=== PATIENT | female | born 1955 | race Caucasian/White ===

== ENCOUNTER 2018-11-20 08:20 | Emergency (ER) | payer BC ==
--- NOTE | 2018-11-20 08:54 | EDM.PDOC ---
ED HPI GENERAL MEDICAL PROBLEM - General Chief Complaint: General Stated Complaint: Dizziness, Nausea Time Seen by Provider: 11/20/18 08:40 Source of Information: Reports: Patient History Limitations: Reports: No Limitations - History of Present Illness INITIAL COMMENTS - FREE TEXT/NARRATIVE: Patient is a 63-year-old female seen in the ER with chief complaint of nausea vomiting right ear pain and possible hives in that she secondary possibly to antibiotics patient started on antibiotics a couple days ago then quit secondary to nausea and vomiting now presents with the above symptoms to the ER Onset: Gradual Duration: Day(s):, Getting Worse Location: Reports: Head, Abdomen Quality: Reports: Pressure Severity: Moderate Improves with: Reports: Medication Worsens with: Reports: None Associated Symptoms: Reports: No Other Symptoms - Related Data Allergies Allergy/AdvReac Type Severity Reaction Status Date / Time No Known Allergies Allergy Verified 11/20/18 08:44 Home Meds: Home Meds RX: Cholecalciferol (Vitamin D3) [Vitamin D3] 2,000 unit PO DAILY 12/01/13 [ History] RX: Magnesium Oxide 400 mg PO DAILY 12/01/13 [History] RX: Buckley-3S/DHA/Epa/Fish Oil [Fish Oil Dr 1,000 mg Softgel] 2 each PO DAILY [History] Cefprozil [Cefzil] 500 mg PO BID #20 tab 11/20/18 [Rx] Ondansetron [Zofran ODT] 4 mg PO Q6H PRN #20 tab.dis 11/20/18 [Rx] RX: ALPRAZolam [Alprazolam] 0.5 mg PO Q8HR 11/20/18 [History] RX: Non-Formulary Medication [NF Drug] 1 applic TOP ASDIRECTED 11/20/18 [History ] diphenhydrAMINE [Benadryl] 25 mg PO Q6H PRN #1 bottle 11/20/18 [Rx] Past Medical History Cardiovascular History: Reports: Heart Murmur, High Cholesterol Respiratory History: Reports: None Gastrointestinal History: Reports: None [employer] History: Reports: Other (See Below) Other [employer] History: Miscarriage x 1 Other Dermatologic History: hx. porocaratosis - Past Surgical History HEENT Surgical History: Reports: Tonsillectomy Female Surgical History: Reports: D&C, Tubal Ligation Musculoskeletal Surgical History: Reports: Carpal Tunnel ED ROS GENERAL - Review of Systems Review Of Systems: See Below HEENT: Reports: Ear Pain Respiratory: Reports: No Symptoms Cardiovascular: Reports: No Symptoms Endocrine: Reports: No Symptoms GI/Abdominal: Reports: No Symptoms : Reports: No Symptoms Musculoskeletal: Reports: No Symptoms Skin: Reports: Rash Neurological: Reports: No Symptoms Psychiatric: Reports: No Symptoms Hematologic/Lymphatic: Reports: No Symptoms Immunologic: Reports: No Symptoms ED EXAM, GENERAL - Physical Exam Exam: See Below Exam Limited By: No Limitations General Appearance: Alert, WD/WN, No Apparent Distress Eye Exam: Bilateral Eye: EOMI, PERRL Ears: Normal External Exam, Normal Canal Ear Exam: Right Ear: TM normal (Red with some bulging), TM Red, TM Bulging Nose: Normal Inspection, Normal Mucosa, No Blood Throat/Mouth: Normal Inspection, Normal Lips, Normal Teeth, Normal Gums, Normal Oropharynx (Dry), Normal Voice, No Airway Compromise Head: Atraumatic, Normocephalic Neck: Normal Inspection, Supple, Non-Tender, Full Range of Motion Respiratory/Chest: No Respiratory Distress, Lungs Clear, Normal Breath Sounds, No Accessory Muscle Use, Chest Non-Tender Cardiovascular: Normal Peripheral Pulses, Regular Rate, Rhythm, No Edema, No Gallop, No JVD, No Murmur, No Rub GI/Abdominal: Normal Bowel Sounds, Soft, Non-Tender, No Organomegaly, No Distention, No Abnormal Bruit, No Mass (Female) Exam: Deferred Rectal (Female) Exam: Deferred Back Exam: Normal Inspection, Full Range of Motion, NT Extremities: Normal Inspection, Normal Range of Motion, Non-Tender, Normal Capillary Refill, No Pedal Edema Neurological: Alert, Oriented, CN II-XII Intact, Normal Cognition, Normal Gait, Normal Reflexes, No Motor/Sensory Deficits Psychiatric: Normal Affect, Normal Mood Skin Exam: Warm, Dry, Intact, Normal Color, No Rash Course - Vital Signs Last Recorded V/S: Last Vital Signs Temp 97.6 F 11/20/18 08:21 Pulse 79 11/20/18 08:32 Resp 12 11/20/18 08:32 BP 177/91 H 11/20/18 08:32 Pulse Ox 99 11/20/18 08:32 - Orders/Labs/Meds Orders: Active Orders 24 hr Category Date Time Status Sodium Chloride 0.9% [Normal Saline] 1,000 ml Med 11/20/18 10:22 Active IV ASDIRECTED Sodium Chloride 0.9% [Saline Flush] Med 11/20/18 09:10 Active 10 ml FLUSH ASDIRECTED PRN Saline Lock Insert [OM.PC] Stat Oth 11/20/18 09:10 Ordered Medication Orders Sodium Chloride (Normal Saline) 1,000 mls @ 500 mls/hr IV ASDIRECTED MARY Sodium Chloride (Saline Flush) 10 ml FLUSH ASDIRECTED PRN PRN Reason: Keep Vein Open Last Admin: 11/20/18 09:16 Dose: 10 ml Meds: Medications Generic Name Dose Route Start Last Admin Trade Name Freq PRN Reason Stop Dose Admin Sodium Chloride 1,000 mls @ 500 mls/hr 11/20/18 10:22 Normal Saline IV ASDIRECTED MARY Sodium Chloride 10 ml 11/20/18 09:10 11/20/18 09:16 Saline Flush FLUSH 10 ml ASDIRECTED PRN Administration Keep Vein Open Discontinued Medications Generic Name Dose Route Start Last Admin Trade Name Freq PRN Reason Stop Dose Admin Diphenhydramine HCl 50 mg 11/20/18 09:08 11/20/18 09:15 Benadryl IVPUSH 11/20/18 09:09 50 mg ONETIME ONE Administration Sodium Chloride 1,000 mls @ 500 mls/hr 11/20/18 09:15 11/20/18 09:15 Normal Saline IV 500 mls/hr ASDIRECTED MARY Administration Ondansetron HCl 4 mg 11/20/18 09:08 11/20/18 09:15 Zofran IVPUSH 11/20/18 09:09 4 mg ONETIME ONE Administration Departure - Departure Time of Disposition: 10:45 Disposition: Home, Self-Care 01 Clinical Impression: Allergic reaction caused by a drug Qualifiers: Encounter type: initial encounter Qualified Code(s): T78.40XA - Allergy, unspecified, initial encounter - Discharge Information *PRESCRIPTION DRUG MONITORING PROGRAM REVIEWED*: Not Applicable *COPY OF PRESCRIPTION DRUG MONITORING REPORT IN PATIENT AKIRA: Not Applicable Prescriptions: Cefprozil [Cefzil] 500 mg PO BID #20 tab diphenhydrAMINE [Benadryl] 25 mg PO Q6H PRN #1 bottle PRN Reason: Itching Ondansetron [Zofran ODT] 4 mg PO Q6H PRN #20 tab.dis PRN Reason: nausea/ vomitting Instructions: Diphenhydramine injection, Ondansetron injection, Drug Allergy, [id number] Referrals: Leandra Gibson [employer] [Primary Care Provider] - Forms: ED Department Discharge Care Plan Goals: patient released to home. Patient to take Cefzil 500mg BID for 10 days, Zofran ADO 4mg for nausea and vomitting every 6 hours as needed, Benadryl 25mg every 6 hours as needed if itching occurs. - My Orders Last 24 Hours: My Active Orders 11/20/18 09:10 Sodium Chloride 0.9% [Saline Flush] 10 ml FLUSH ASDIRECTED PRN Saline Lock Insert [OM.PC] Stat 11/20/18 10:22 Sodium Chloride 0.9% [Normal Saline] 1,000 ml IV ASDIRECTED - Assessment/Plan Last 24 Hours: My Active Orders 11/20/18 09:10 Sodium Chloride 0.9% [Saline Flush] 10 ml FLUSH ASDIRECTED PRN Saline Lock Insert [OM.PC] Stat 11/20/18 10:22 Sodium Chloride 0.9% [Normal Saline] 1,000 ml IV ASDIRECTED
[2018-11-20] MEDS ORDERED: diphenhydrAMINE 50 MG/ML SDV IVPUSH ONE (09:08)
[2018-11-20] MEDS ORDERED: Ondansetron 4 MG/2 ML SDV IVPUSH ONE (09:08)
[2018-11-20] MEDS ORDERED: Sodium Chloride 0.9% 10 ML Syringe FLUSH PRN (09:10)
[2018-11-20] MEDS ORDERED: Sodium Chloride 0.9% 1,000 ML IV SCH ×2 (09:15→10:22)
[2018-11-20 10:49] VITALS: BP 162/86
== END 2018-11-20 10:55 | disposition home or self-care (01) ==
LOC: LL.ED 08:20
DX: R11.2 Nausea with vomiting, unspecified (principal); T50.905A Adverse effect of unspecified drugs, medicaments and biological substances, initial encounter; E78.00 Pure hypercholesterolemia, unspecified; Z79.899 Other long term (current) drug therapy
CPT/HCPCS: 96361; 96374; 96375; 99283; J1200; J2405; J7030

== ENCOUNTER 2018-11-21 08:27 | Observation (INO) | payer BC ==
[2018-11-21 08:58] LABS: CHLORIDE,CL 102 mmol/L (98-107); SODIUM,NA 141 mmol/L (136-145)
--- NOTE | 2018-11-21 09:28 | EDM.PDOC ---
ED HPI GENERAL MEDICAL PROBLEM - General Chief Complaint: General Stated Complaint: dizziness, nausea, vomiting Time Seen by Provider: 11/21/18 08:38 Source of Information: Reports: Patient History Limitations: Reports: No Limitations - History of Present Illness INITIAL COMMENTS - FREE TEXT/NARRATIVE: 5 day history of nausea/emesis/vertigo. Attributed to right middle ear infection, likely viral in etiology. Was given coverage initially with Augmentin for any potential bacterial involvement. Developed facial urticaria and switched to Cefzil. Has been tolerating the Cefzil. Seen at clinic yesterday. Continues to have 4-5 episodes of emesis daily despite PRN Zofran. No fevers. Had a sore throat initially before developing ear pain on right side. Sore throat has resolved. Dizziness worse with head rotation/walking. No bowel changes. No cough/wheeze/ SOB/respiratory changes. No rashes currently. Urinating well. No UTI complaints. No vision changes but describes spinning sensation with head rotation. No hearing changes. No pain complaints other than intermittent discomfort in right ear. No other complaints during ROS in ER. - Related Data Allergies Allergy/AdvReac Type Severity Reaction Status Date / Time amoxicillin [From Augmentin] Allergy Hives Verified 11/21/18 09:47 clavulanic acid Allergy Hives Verified 11/21/18 09:47 [From Augmentin] Home Meds: Home Meds Cholecalciferol (Vitamin D3) [Vitamin D3] 2,000 unit PO DAILY 12/01/13 [History] Magnesium Oxide 400 mg PO DAILY 12/01/13 [History] Edward-3S/DHA/Epa/Fish Oil [Fish Oil Dr 1,000 mg Softgel] 2 each PO DAILY [History] ALPRAZolam [Alprazolam] 0.5 mg PO Q8HR 11/20/18 [History] Cefprozil [Cefzil] 500 mg PO BID #20 tab 11/20/18 [Rx] Non-Formulary Medication [NF Drug] 1 applic TOP ASDIRECTED 11/20/18 [History] Ondansetron [Zofran ODT] 4 mg PO Q6H PRN #20 tab.dis 11/20/18 [Rx] diphenhydrAMINE [Benadryl] 25 mg PO Q6H PRN #1 bottle 11/20/18 [Rx] Past Medical History Cardiovascular History: Reports: Heart Murmur, High Cholesterol Respiratory History: Reports: None Gastrointestinal History: Reports: None [employer]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 porocaratosis - Past Surgical History HEENT Surgical History: Reports: Tonsillectomy Female Surgical History: Reports: D&C, Tubal Ligation Musculoskeletal Surgical History: Reports: Carpal Tunnel Social & Family History - Family History Family Medical History: Noncontributory - Tobacco Use Smoking Status *Q: Never Smoker - Caffeine Use Caffeine Use: Reports: None - Alcohol Use Alcohol Use History: No - Recreational Drug Use Recreational Drug Use: No Drug Use in Last 12 Months: No ED ROS GENERAL - Review of Systems Review Of Systems: ROS reveals no pertinent complaints other than HPI. ED EXAM, GENERAL - Physical Exam Exam: See Below Exam Limited By: No Limitations General Appearance: Alert, WD/WN, No Apparent Distress Eye Exam: Bilateral Eye: EOMI, PERRL, Other (no nystagmus noted) Ears: Normal External Exam, Normal Canal, Other (right TM slightly retracted. No erythema, no fluid noted) Ear Exam: Bilateral Ear: Auricle Normal Nose: No: Nasal Deformity, Nasal Swelling, Nasal Drainage Throat/Mouth: Normal Oropharynx, Normal Voice, No Airway Compromise Head: Atraumatic, Normocephalic Neck: Normal Inspection, Supple, Non-Tender, Full Range of Motion. No: Lymphadenopathy (L), Lymphadenopathy (R) Respiratory/Chest: No Respiratory Distress, Lungs Clear, Normal Breath Sounds, No Accessory Muscle Use, Chest Non-Tender Cardiovascular: Regular Rate, Rhythm, No Edema, No JVD Peripheral Pulses: 2+: Radial (L), Radial (R), Dorsalis Pedis (L), Dorsalis Pedis (R) GI/Abdominal: Normal Bowel Sounds, Soft, Non-Tender, No Distention (Female) Exam: Deferred Rectal (Female) Exam: Deferred Back Exam: Normal Inspection Extremities: Normal Range of Motion, Non-Tender, No Pedal Edema Neurological: Alert, Oriented, CN II-XII Intact, Normal Cognition, No Motor/ Sensory Deficits Psychiatric: Normal Affect, Normal Mood Skin Exam: Warm, Dry, Intact, Normal Color Course - Vital Signs Last Recorded V/S: Last Vital Signs Temp 37.2 C 11/21/18 12:00 Pulse 74 11/21/18 12:00 Resp 15 11/21/18 12:00 BP 181/92 H 11/21/18 12:00 Pulse Ox 100 11/21/18 12:00 - Orders/Labs/Meds Orders: Active Orders 24 hr Category Date Time Status UA W/MICROSCOPIC [URIN] Stat Lab 11/21/18 08:32 Ordered Sodium Chloride 0.9% [Saline Flush] Med 11/21/18 08:32 Active 10 ml FLUSH ASDIRECTED PRN Saline Lock Insert [OM.PC] Routine Oth 11/21/18 08:32 Ordered Medication Orders Enoxaparin Sodium (Lovenox) 40 mg SUBCUT DAILY [facility] Last Admin: 11/21/18 12:49 Dose: 40 mg Sodium Chloride (Normal Saline) 500 mls @ 100 mls/hr IV ASDIRECTED MARY Meclizine HCl (Antivert) 25 mg PO Q6H MARY Last Admin: 11/21/18 12:48 Dose: 25 mg Ondansetron HCl (Zofran) 4 mg IVPUSH Q6H PRN PRN Reason: Nausea/Vomiting Potassium Chloride (Klor-Con 10) 10 meq PO TID MARY Last Admin: 11/21/18 12:48 Dose: 10 meq Sodium Chloride (Saline Flush) 10 ml FLUSH ASDIRECTED PRN PRN Reason: Keep Vein Open Last Admin: 11/21/18 10:40 Dose: 10 ml Labs: Laboratory Tests 11/21/18 11/21/18 Range/Units 08:40 08:40 WBC 6.6 (4.0-10.2) K/uL RBC 4.58 (3.77-5.09) M/uL Hgb 15.1 (11.7-15.5) g/dL Hct 42.5 (34.0-46.0) % MCV 92.8 (84.0-98.0) fL MCH 33.0 (28.2-33.3) pg MCHC 35.5 (31.7-36.0) g/dL RDW 12.2 (11.2-14.1) % Plt Count 269 (150-350) K/uL Neut % (Auto) 60.1 (45.0-80.0) % Lymph % (Auto) 29.1 (10.0-50.0) % Anson % (Auto) 10.1 (2.0-14.0) % Eos % (Auto) 0.2 (0.0-5.0) % Baso % (Auto) 0.5 (0.0-2.0) % Neut # (Auto) 3.99 (1.40-7.00) K/uL Lymph # (Auto) 1.93 (0.50-3.50) K/uL Anson # (Auto) 0.67 (0.00-1.00) K/uL Eos # (Auto) 0.01 (0.00-0.50) K/uL Baso # (Auto) 0.03 (0.00-0.20) K/uL Sodium 141 (136-145) mmol/L Potassium 3.3 L (3.5-5.1) mmol/L Chloride 102 (98-107) mmol/L Carbon Dioxide 26.7 (21.0-32.0) mmol/L BUN 15 (7-18) mg/dL Creatinine 0.61 (0.51-1.17) mg/dL Est Cr Clr Drug Dosing TNP Estimated GFR (MDRD) > 60 mL/min Glucose 115 H (74-106) mg/dL Calcium 9.1 (8.5-10.1) mg/dL Magnesium 1.5 L (1.8-2.4) mg/dL Total Bilirubin 0.6 (0.2-1.0) mg/dL AST 21 (15-37) U/L ALT 21 (12-78) U/L Alkaline Phosphatase 83 (46-116) IU/L Total Protein 7.2 (6.4-8.2) g/dL Albumin 3.3 L (3.4-5.0) g/dL Meds: Medications Generic Name Dose Route Start Last Admin Trade Name Freq PRN Reason Stop Dose Admin Enoxaparin Sodium 40 mg 11/21/18 11:00 11/21/18 12:49 Lovenox SUBCUT 40 mg DAILY MARY Administration Sodium Chloride 500 mls @ 100 mls/hr 11/21/18 12:00 Normal Saline IV ASDIRECTED MARY Meclizine HCl 25 mg 11/21/18 13:00 11/21/18 12:48 Antivert PO 25 mg Q6H MARY Administration Ondansetron HCl 4 mg 11/21/18 09:30 Zofran IVPUSH Q6H PRN Nausea/Vomiting Potassium Chloride 10 meq 11/21/18 12:00 11/21/18 12:48 Klor-Con 10 PO 10 meq TID MARY Administration Sodium Chloride 10 ml 11/21/18 08:32 11/21/18 10:40 Saline Flush FLUSH 10 ml ASDIRECTED PRN Administration Keep Vein Open Discontinued Medications Generic Name Dose Route Start Last Admin Trade Name Freq PRN Reason Stop Dose Admin Sodium Chloride 1,000 mls @ 500 mls/hr 11/21/18 09:41 11/21/18 10:40 Normal Saline IV 11/21/18 11:40 500 mls/hr .BOLUS ONE Administration Magnesium Sulfate/Dextrose 1 gm 11/21/18 10:00 11/21/18 12:46 Magnesium 1 Gm In D5w 100 Ml IV 11/21/18 10:01 1 gm ONETIME ONE Administration Meclizine HCl 25 mg 11/21/18 10:00 11/21/18 13:08 Antivert PO Not Given Q6H MARY Promethazine HCl 25 mg 11/21/18 09:41 11/21/18 10:42 Phenergan IM 11/21/18 09:42 25 mg ONETIME ONE Administration - Re-Assessments/Exams Free Text/Narrative Re-Assessment/Exam: 11/21/18 09:57 Noted to have low Mag and K. Normal WBC. Given persistent severity of dizziness/nausea/emesis, it was decided to admit the patient to observation for IV fluids, IV Zofran, potassium and Mag replacement. WIll also order head CT to help rule out other causes contributing to patient's complaints. Suspect given history and exam that symptoms are due to inner ear dysfunction secondary to recent URI symptoms. Departure - Departure Time of Disposition: 09:28 Disposition: Refer to Observation Condition: Good Clinical Impression: Vertigo, Hypokalemia, Hypomagnesemia Nausea & vomiting Qualifiers: Vomiting type: unspecified Vomiting Intractability: non-intractable Qualified Code(s): R11.2 - Nausea with vomiting, unspecified - Discharge Information - Problem List & Annotations (1) Vertigo SNOMED Code(s): 056905962 Code(s): R42 - DIZZINESS AND GIDDINESS Status: Acute Priority: High Current Visit: Yes Onset Date: ~11/17/18 Annotation/Comment:: Suspect secondary to inner ear/labyrinthitis. Sore throat/right ear pain preceeded symptoms. Placed on Augmentin and then switched to Cefzil yesterday due to developing rash. Will treat with Meclizine. Unremarkable head CT study per Radiology reading today. (2) Nausea & vomiting SNOMED Code(s): 51934621 Code(s): R11.2 - NAUSEA WITH VOMITING, UNSPECIFIED Status: Acute Priority : High Current Visit: Yes Onset Date: ~11/17/18 Annotation/Comment:: Suspect secondary to labrynthitis. Recent sore throat and right ear pain. Triggered by movement. Improved with Phenergan/Zofran. IV fluid bolus given with maintenance IV NS to follow. Qualifiers: Vomiting type: unspecified Vomiting Intractability: non-intractable Qualified Code(s): R11.2 - Nausea with vomiting, unspecified (3) Hypokalemia SNOMED Code(s): 99819117 Code(s): E87.6 - HYPOKALEMIA Status: Acute Priority: Medium Current Visit: Yes Annotation/Comment:: Supplemental KCl initiated. Recheck level in AM (4) Hypomagnesemia SNOMED Code(s): 453221384 Code(s): E83.42 - HYPOMAGNESEMIA Status: Acute Priority: Medium Current Visit: Yes Annotation/Comment:: Supplemental Magnesium given IV. Patient is on oral supplementation at home. Low levels may be contributing to elevated BP noted in ER. Low Mag has also been linked to dizziness in literature review. Recheck level later today (5) Allergic reaction caused by a drug SNOMED Code(s): 901397996 Code(s): T78.40XA - ALLERGY, UNSPECIFIED, INITIAL ENCOUNTER Status: Acute Priority: Medium Current Visit: Yes Onset Date: ~11/20/18 Annotation/ Comment:: Developed facial urticaria while being treated with Augmentin for presumed ear infection. Seen yesterday for this in clinic, switched to Cefzil. New red patch on right cheek this afternoon. May be holdover from Augmentin reaction and not due to Cefzil. Will discontinue antibiotics for now as patient is afebrile, has normal WBC, and TMs of ears appear clear. Suspect initial sore throat and ear pain likely viral in origin given history and exam. Would like to avoid additional antibiotic exposure for now given the adverse reaction to Augmentin. Qualifiers: Encounter type: initial encounter Qualified Code(s): T78.40XA - Allergy, unspecified, initial encounter - Problem List Review Problem List Initiated/Reviewed/Updated: Yes - My Orders Last 24 Hours: My Active Orders 11/21/18 08:32 UA W/MICROSCOPIC [URIN] Stat Sodium Chloride 0.9% [Saline Flush] 10 ml FLUSH ASDIRECTED PRN Saline Lock Insert [OM.PC] Routine - Assessment/Plan Admission H&P: Please use this note as an admission H&P Last 24 Hours: My Active Orders 11/21/18 08:32 UA W/MICROSCOPIC [URIN] Stat Sodium Chloride 0.9% [Saline Flush] 10 ml FLUSH ASDIRECTED PRN Saline Lock Insert [OM.PC] Routine Assessment:: as above Plan: as above. Anticipate 1-2 days observation stay depending on patient's response to above interventions.
[2018-11-21] MEDS ORDERED: Sodium Chloride 0.9% 1,000 ML IV ONE (09:41)
[2018-11-21] MEDS ORDERED: Promethazine 25 MG/ML SDV IM ONE (09:41)
[2018-11-21] MEDS ORDERED: Meclizine 25 MG Tab PO SCH (10:00)
[2018-11-21] MEDS: Sodium Chloride 0.9% 10 ML Syringe FLUSH PRN ×2 (10:40→17:12)
[2018-11-21] MEDS ORDERED: Sodium Chloride 0.9% 500 ML IV SCH (12:00)
[2018-11-21] MEDS: Meclizine 25 MG Tab PO SCH ×2 (12:48→19:36)
[2018-11-21] MEDS: Potassium Chloride 10 MEQ Tab.ER PO SCH ×2 (12:48→17:12)
[2018-11-21] MEDS: Enoxaparin 40 MG/0.4 ML Syringe SUBCUT SCH (12:49)
[2018-11-21] MEDS ORDERED: diphenhydrAMINE 50 MG/ML SDV IVPUSH ONE (13:40)
[2018-11-21] MEDS: Sodium Chloride 0.9% 1,000 ML IV SCH (13:56)
[2018-11-21] MEDS ORDERED: diphenhydrAMINE 25 MG Cap PO PRN (14:00)
[2018-11-21] MEDS ORDERED: ALPRAZolam 0.25 MG Tab PO PRN (14:00)
[2018-11-21] MEDS ORDERED: ALPRAZolam 0.25 MG Tab PO SCH (16:00)
[2018-11-21] MEDS: Ondansetron 4 MG/2 ML SDV IVPUSH PRN (17:12)
[2018-11-22] MEDS: Sodium Chloride 0.9% 1,000 ML IV SCH (00:20)
[2018-11-22] MEDS: Meclizine 25 MG Tab PO SCH ×4 (01:04→19:36)
[2018-11-22] MEDS: Ondansetron 4 MG/2 ML SDV IVPUSH PRN (06:18)
[2018-11-22] MEDS ORDERED: Metoprolol Tartrate 25 MG Tab PO ONE (06:43)
[2018-11-22] MEDS: Potassium Chloride 10 MEQ Tab.ER PO SCH ×2 (07:34→12:10)
[2018-11-22] MEDS: Enoxaparin 40 MG/0.4 ML Syringe SUBCUT SCH (07:34)
[2018-11-22 07:59] LABS: CHLORIDE,CL 107 mmol/L (98-107); SODIUM,NA 143 mmol/L (136-145)
--- NOTE | 2018-11-22 10:58 | PCM.PN ---
- General Info Date of Service: 11/22/18 Admission Dx/Problem (Free Text): Admitted for treatment of severe vertigo, nausea and vomiting, thought to be secondary to right inner ear infection. Subjective Update: Improved overall this morning. Able to eat/drink. Symptoms have not completely gone away. Functional Status: Reports: Pain Controlled, Tolerating Diet, Ambulating, Urinating. Denies: New Symptoms - Review of Systems General: Reports: No Symptoms HEENT: Reports: Other (currently no ear pain complaint). Denies: Headaches, Sinus Congestion, Sore Throat, Rhinitis, Visual Changes Pulmonary: Reports: No Symptoms Cardiovascular: Denies: Chest Pain, Palpitations, Dyspnea on Exertion, Orthopnea , Edema Gastrointestinal: Reports: No Symptoms Genitourinary: Reports: No Symptoms Musculoskeletal: Reports: No Symptoms Skin: Reports: No Symptoms Neurological: Reports: Dizziness (at times, improved overall), Difficulty Walking (improved today). Denies: Headache, Numbness, Paresthesia, Syncope, Tingling, Trouble Speaking, Weakness, Change in Speech Psychiatric: Reports: No Symptoms - Patient Data Vitals - Most Recent: Last Vital Signs Temp 37.3 C 11/22/18 07:46 Pulse 64 11/22/18 09:30 Resp 16 11/22/18 07:46 BP 157/89 H 11/22/18 09:30 Pulse Ox 99 11/22/18 07:46 Weight - Most Recent: 52.163 kg I&O - Last 24 Hours: Intake & Output 11/21/18 11/22/18 11/22/18 22:59 06:59 14:59 Intake Total 616 1448 240 Balance 616 1448 240 Lab Results Last 24 Hours: Laboratory Results - last 24 hr 11/21/18 11/21/18 11/22/18 Range/Units 13:03 17:10 07:15 WBC (4.0-10.2) K/uL RBC (3.77-5.09) M/uL Hgb (11.7-15.5) g/dL Hct (34.0-46.0) % MCV (84.0-98.0) fL MCH (28.2-33.3) pg MCHC (31.7-36.0) g/dL RDW (11.2-14.1) % Plt Count (150-350) K/uL Neut % (Auto) (45.0-80.0) % Lymph % (Auto) (10.0-50.0) % [place] % (Auto) (2.0-14.0) % Eos % (Auto) (0.0-5.0) % Baso % (Auto) (0.0-2.0) % Neut # (Auto) (1.40-7.00) K/uL Lymph # (Auto) (0.50-3.50) K/uL [place] # (Auto) (0.00-1.00) K/uL Eos # (Auto) (0.00-0.50) K/uL Baso # (Auto) (0.00-0.20) K/uL Sodium 143 (136-145) mmol/L Potassium 3.6 (3.5-5.1) mmol/L Chloride 107 (98-107) mmol/L Carbon Dioxide 29.0 (21.0-32.0) mmol/L BUN 7 (7-18) mg/dL Creatinine 0.57 (0.51-1.17) mg/dL Est Cr Clr Drug Dosing 78.21 mL/min Estimated GFR (MDRD) > 60 mL/min Glucose 100 (74-106) mg/dL Calcium 8.2 L (8.5-10.1) mg/dL Magnesium 2.0 1.8 (1.8-2.4) mg/dL Specimen Type Urinvoid Urine Color Yellow Urine Appearance Clear Urine pH 6.0 (5.0-9.0) Ur Specific [place] 1.020 (1.005-1.030) Urine Protein Trace H (NEGATIVE) mg/dL Urine Glucose (UA) Negative (NEGATIVE) mg/dL Urine Ketones 80 H (NEGATIVE) mg/dL Urine Occult Blood Trace-intact H (NEGATIVE) Urine Nitrite Negative (NEGATIVE) Urine Bilirubin Negative (NEGATIVE) Urine Urobilinogen 0.2 (0.2-1.0) E.U./dL Ur Leukocyte Esterase Negative (NEGATIVE) Urine RBC 0-5 /HPF Urine WBC 0-5 /HPF Ur Epithelial Cells Few /LPF Urine Bacteria Few (NONE TO FEW) /HPF 11/22/18 Range/Units 07:15 WBC 6.0 (4.0-10.2) K/uL RBC 4.09 (3.77-5.09) M/uL Hgb 13.3 D (11.7-15.5) g/dL Hct 38.4 (34.0-46.0) % MCV 93.9 (84.0-98.0) fL MCH 32.5 (28.2-33.3) pg MCHC 34.6 (31.7-36.0) g/dL RDW 12.3 (11.2-14.1) % Plt Count 247 (150-350) K/uL Neut % (Auto) 50.2 (45.0-80.0) % Lymph % (Auto) 36.6 (10.0-50.0) % [place] % (Auto) 11.6 (2.0-14.0) % Eos % (Auto) 0.8 (0.0-5.0) % Baso % (Auto) 0.8 (0.0-2.0) % Neut # (Auto) 3.03 (1.40-7.00) K/uL Lymph # (Auto) 2.21 (0.50-3.50) K/uL [place] # (Auto) 0.70 (0.00-1.00) K/uL Eos # (Auto) 0.05 (0.00-0.50) K/uL Baso # (Auto) 0.05 (0.00-0.20) K/uL Sodium (136-145) mmol/L Potassium (3.5-5.1) mmol/L Chloride (98-107) mmol/L Carbon Dioxide (21.0-32.0) mmol/L BUN (7-18) mg/dL Creatinine (0.51-1.17) mg/dL Est Cr Clr Drug Dosing mL/min Estimated GFR (MDRD) mL/min Glucose (74-106) mg/dL Calcium (8.5-10.1) mg/dL Magnesium (1.8-2.4) mg/dL Specimen Type Urine Color Urine Appearance Urine pH (5.0-9.0) Ur Specific [place] (1.005-1.030) Urine Protein (NEGATIVE) mg/dL Urine Glucose (UA) (NEGATIVE) mg/dL Urine Ketones (NEGATIVE) mg/dL Urine Occult Blood (NEGATIVE) Urine Nitrite (NEGATIVE) Urine Bilirubin (NEGATIVE) Urine Urobilinogen (0.2-1.0) E.U./dL Ur Leukocyte Esterase (NEGATIVE) Urine RBC /HPF Urine WBC /HPF Ur Epithelial Cells /LPF Urine Bacteria (NONE TO FEW) /HPF Med Orders - Current: Current Medications Alprazolam (Xanax) 0.5 mg PO Q8H PRN PRN Reason: Anxiety Diphenhydramine HCl (Benadryl) 25 mg PO Q6H PRN PRN Reason: Itching Enoxaparin Sodium (Lovenox) 40 mg SUBCUT DAILY [facility] Last Admin: 11/22/18 07:34 Dose: 40 mg Sodium Chloride (Normal Saline) 1,000 mls @ 100 mls/hr IV ASDIRECTED [facility] Last Admin: 11/22/18 00:20 Dose: 100 mls/hr Meclizine HCl (Antivert) 25 mg PO Q6H [facility] Last Admin: 11/22/18 06:18 Dose: 25 mg Ondansetron HCl (Zofran) 4 mg IVPUSH Q6H PRN PRN Reason: Nausea/Vomiting Last Admin: 11/22/18 06:18 Dose: 4 mg Potassium Chloride (Klor-Con 10) 10 meq PO TID [facility] Last Admin: 11/22/18 07:34 Dose: 10 meq Sodium Chloride (Saline Flush) 10 ml FLUSH ASDIRECTED PRN PRN Reason: Keep Vein Open Last Admin: 11/21/18 17:12 Dose: 10 ml Discontinued Medications Alprazolam (Xanax) 0.5 mg PO Q8HR [facility] Diphenhydramine HCl (Benadryl) 50 mg IVPUSH ONETIME ONE Stop: 11/21/18 13:41 Last Admin: 11/21/18 13:57 Dose: 50 mg Sodium Chloride (Normal Saline) 1,000 mls @ 500 mls/hr IV .BOLUS ONE Stop: 11/21/18 11:40 Last Admin: 11/21/18 10:40 Dose: 500 mls/hr Sodium Chloride (Normal Saline) 500 mls @ 100 mls/hr IV ASDIRECTED [facility] Magnesium Sulfate/Dextrose (Magnesium 1 Gm In D5w 100 Ml) 1 gm IV ONETIME ONE Stop: 11/21/18 10:01 Last Admin: 11/21/18 12:46 Dose: 1 gm Magnesium Sulfate/Dextrose (Magnesium 1 Gm In D5w 100 Ml) 1 gm IV ONETIME ONE Stop: 11/22/18 10:01 Last Admin: 11/22/18 09:53 Dose: 1 gm Meclizine HCl (Antivert) 25 mg PO Q6H [facility] Last Admin: 11/21/18 13:08 Dose: Not Given Metoprolol Tartrate (Lopressor) 25 mg PO ONETIME ONE Stop: 11/22/18 06:44 Last Admin: 11/22/18 07:34 Dose: 25 mg Promethazine HCl (Phenergan) 25 mg IM ONETIME ONE Stop: 11/21/18 09:42 Last Admin: 11/21/18 10:42 Dose: 25 mg - Exam Quality Assessment: DVT Prophylaxis General: Alert, Oriented, Cooperative, No Acute Distress HEENT: Pupils Equal, Pupils Reactive, EOMI Neck: Supple, Trachea Midline, No JVD, No Thyromegaly Lungs: Clear to Auscultation, Normal Respiratory Effort Cardiovascular: Regular Rate, Regular Rhythm, No Murmurs GI/Abdominal Exam: Normal Bowel Sounds, Soft, Non-Tender, No Distention (Female) Exam: Deferred Back Exam: Normal Inspection Extremities: Normal Inspection, Normal Capillary Refill Skin: Warm, Dry, Intact Neurological: No New Focal Deficit Psy/Mental Status: Alert, Normal Affect, Normal Mood - Problem List & Annotations (1) Vertigo SNOMED Code(s): 596153266 Code(s): R42 - DIZZINESS AND GIDDINESS Status: Acute Priority: High Current Visit: Yes Onset Date: ~11/17/18 Annotation/Comment:: Suspect secondary to inner ear/labyrinthitis. Sore throat/right ear pain preceeded symptoms. Placed on Augmentin and then switched to Cefzil due to developing rash. Antibiotics discontinued at this time as TMs do not show changes suggestive of bacterial infection. Patient's WBC normal. Afebrile. Receiving Meclizine q6hr. Improved today. Unremarkable head CT study per Radiology reading today. (2) Nausea & vomiting SNOMED Code(s): 05091726 Code(s): R11.2 - NAUSEA WITH VOMITING, UNSPECIFIED Status: Acute Priority : High Current Visit: Yes Onset Date: ~11/17/18 Qualifiers: Vomiting type: unspecified Vomiting Intractability: non-intractable Qualified Code(s): R11.2 - Nausea with vomiting, unspecified Annotation/Comment:: Suspect secondary to labrynthitis. Recent sore throat and right ear pain. Triggered by movement. Improved with Phenergan/Zofran and IV fluids (3) Hypokalemia SNOMED Code(s): 83264717 Code(s): E87.6 - HYPOKALEMIA Status: Acute Priority: Medium Current Visit: Yes Annotation/Comment:: Supplemental KCl initiated. Normal level today. (4) Hypomagnesemia SNOMED Code(s): 159459415 Code(s): E83.42 - HYPOMAGNESEMIA Status: Acute Priority: Medium Current Visit: Yes Annotation/Comment:: Supplemental Magnesium given IV given patient's low levels. Magnesium has been linked to hypertension as well as dizziness, both of which patient is currently experiencing. (5) Allergic reaction caused by a drug SNOMED Code(s): 230882989 Code(s): T78.40XA - ALLERGY, UNSPECIFIED, INITIAL ENCOUNTER Status: Acute Priority: Medium Current Visit: Yes Onset Date: ~11/20/18 Qualifiers: Encounter type: initial encounter Qualified Code(s): T78.40XA - Allergy, unspecified, initial encounter Annotation/Comment:: Developed facial urticaria while being treated with Augmentin for presumed ear infection. Seen for this in clinic, switched to Cefzil. New red patch on right cheek yesterday. May be holdover from Augmentin reaction and not due to Cefzil. Will discontinue antibiotics for now as patient is afebrile, has normal WBC, and TMs of ears appear clear. Suspect initial sore throat and ear pain likely viral in origin given history and exam. Would like to avoid additional antibiotic exposure for now given the adverse reaction to Augmentin. (6) Hypertension SNOMED Code(s): 74987489 Code(s): I10 - ESSENTIAL (PRIMARY) HYPERTENSION Status: Acute Priority: Medium Current Visit: Yes Qualifiers: Hypertension type: unspecified Qualified Code(s): I10 - Essential (primary ) hypertension Annotation/Comment:: Have noted persistently elevated systolic and diastolic pressures since admission. Patient denies having elevated BPs in past. No change noted despite improvement of patient's dizziness/emesis complaints overnight. Single Metoprolol given this morning. Monitoring for trends. TSH and Free T4 requested as patient gives history of having part of her Thyroid removed in past. Denies ever needing thyroid supplementation. Cannot remember the specific diagnosis that led to the surgery. - Problem List Review Problem List Initiated/Reviewed/Updated: Yes - My Orders Last 24 Hours: My Active Orders 11/21/18 11:00 Enoxaparin [Lovenox] 40 mg SUBCUT DAILY 11/21/18 12:00 Potassium Chloride [Klor-Con 10] 10 meq PO TID 11/21/18 13:00 Meclizine [Antivert] 25 mg PO Q6H 11/21/18 13:30 Sodium Chloride 0.9% [Normal Saline] 1,000 ml IV ASDIRECTED 11/21/18 14:00 ALPRAZolam [Xanax] 0.5 mg PO Q8H PRN diphenhydrAMINE [Benadryl] 25 mg PO Q6H PRN 11/22/18 10:30 T4 FREE [CHEM] Routine TSH ULTRASENSITIVE [CHEM] Routine 11/22/18 Breakfast Regular Diet [DIET] - Assessment Assessment:: as above - Plan Plan:: Will continue regular Meclizine. Monitor BP for changes. Additional dose of Mg ordered this morning. IV fluids discontinued. Anticipate discharge home tomorrow if patient remains improved, with close follow up after discharge with primary provider.
[2018-11-22] MEDS ORDERED: Benazepril 10 MG Tab PO ONE (19:00)
[2018-11-23] MEDS: Meclizine 25 MG Tab PO SCH ×3 (00:46→12:00)
[2018-11-23] MEDS ORDERED: Potassium Chloride 10 MEQ Tab.ER PO SCH (08:00)
[2018-11-23] MEDS: Enoxaparin 40 MG/0.4 ML Syringe SUBCUT SCH (08:01)
[2018-11-23 08:04] LABS: CHLORIDE,CL 106 mmol/L (98-107); SODIUM,NA 142 mmol/L (136-145)
[2018-11-23] MEDS ORDERED: Benazepril 10 MG Tab PO ONE (10:52)
[2018-11-23 12:06] VITALS: BP 162/91
--- NOTE | 2018-11-23 12:53 | PCM.DCSUM1 ---
Discharge Summary - Hospital Course Brief History: Admitted for treatment of vertigo, nausea/emesis Diagnosis: Stroke: No - Discharge Data Discharge Date: 11/23/18 Discharge Disposition: Home, Self-Care 01 Condition: Good - Discharge Diagnosis/Problem(s) (1) Vertigo SNOMED Code(s): 370627789 ICD Code: R42 - DIZZINESS AND GIDDINESS Status: Acute Priority: High Current Visit: Yes Onset Date: ~11/17/18 Problem Details: Significantly improved. Suspect secondary to inner ear/labyrinthitis. Sore throat/right ear pain preceeded symptoms. Placed on Augmentin and then switched to Cefzil due to developing rash. Rash persisted, all antibiotics discontinued during admission as TMs appeared overall unremarkable. Patient's WBC normal. Afebrile. Meclizine q6hr. Unremarkable head CT study per Radiology reading today. (2) Right otitis media SNOMED Code(s): 05844835 ICD Code: H66.91 - OTITIS MEDIA, UNSPECIFIED, RIGHT EAR Status: Acute Current Visit: Yes Problem Details: Treated with Augmentin. Accompanied by viral URI complaints. Developed rash. Had one day of Cefzil prior to admission for treatment of vertigo/emesis. Antibiotics held for the last few days given recent hives. Suspect viral etiology. May consider resuming antibiotics depending on clinical course. Qualifiers: Otitis media type: serous Chronicity: acute Recurrence: not specified as recurrent Qualified Code(s): H65.01 - Acute serous otitis media, right ear (3) Hypertension SNOMED Code(s): 01492997 ICD Code: I10 - ESSENTIAL (PRIMARY) HYPERTENSION Status: Acute Priority: Medium Current Visit: Yes Problem Details: Have noted persistently elevated systolic and diastolic pressures since admission. Patient denies having elevated BPs in past. No change noted despite improvement of patient's dizziness/emesis complaints overnight. Single Metoprolol given without much observed change. Several doses of Lotensin given with mild improvement of readings. Patient will be continued on Lotensin and is directed to follow up closely this week with her primary provider in regards to ongoing BP treatment. She is also to keep record of daily BPs as she has access to a home BP monitor. Qualifiers: Hypertension type: unspecified Qualified Code(s): I10 - Essential (primary ) hypertension (4) Nausea & vomiting SNOMED Code(s): 21829547 ICD Code: R11.2 - NAUSEA WITH VOMITING, UNSPECIFIED Status: Acute Priority: High Current Visit: Yes Onset Date: ~11/17/18 Problem Details: Suspect secondary to labrynthitis. Recent sore throat and right ear pain. Triggered by movement. Improved with Phenergan/Zofran and IV fluids Qualifiers: Vomiting type: unspecified Vomiting Intractability: non-intractable Qualified Code(s): R11.2 - Nausea with vomiting, unspecified (5) Hypokalemia SNOMED Code(s): 20261009 ICD Code: E87.6 - HYPOKALEMIA Status: Acute Priority: Medium Current Visit: Yes Problem Details: Supplemental KCl initiated. Normal level today. (6) Hypomagnesemia SNOMED Code(s): 476049627 ICD Code: E83.42 - HYPOMAGNESEMIA Status: Acute Priority: Medium Current Visit: Yes Problem Details: Supplemental Magnesium given IV given patient's low levels. Magnesium has been linked to hypertension as well as dizziness, both of which patient was experiencing. 1.8 today, low normal level for serum (7) Allergic reaction caused by a drug SNOMED Code(s): 222510313 ICD Code: T78.40XA - ALLERGY, UNSPECIFIED, INITIAL ENCOUNTER Status: Acute Priority: Medium Current Visit: Yes Onset Date: ~11/20/18 Problem Details: Developed facial urticaria while being treated with Augmentin for presumed ear infection. Seen for this in clinic, switched to Cefzil. New red patch on right cheek yesterday. May be holdover from Augmentin reaction. Suspect initial sore throat and ear pain likely viral in origin given history and exam. Qualifiers: Encounter type: initial encounter Qualified Code(s): T78.40XA - Allergy, unspecified, initial encounter (8) Elevated TSH SNOMED Code(s): 849687606 ICD Code: R79.89 - OTHER SPECIFIED ABNORMAL FINDINGS OF BLOOD CHEMISTRY Status: Acute Priority: Medium Current Visit: Yes Problem Details: To follow up with primary provider and determine what additional workup appropriate. - Patient Summary/Data Hospital Course: Gradual improvement of vertigo noted. Nausea and emesis resolved. BP noted to be persistently elevated as described above. Patient feels well enough to go home today and will follow up with her primary provider. Will consider having her restart the Cefzil, although current intermittent ear pain could be viral in nature. Patient is aware that she should discontinue the Cefzil if any rash develops that is similar to the one she had while taking Augmentin. - Patient Instructions Diet: Regular Diet as Tolerated Activity: As Tolerated Driving: May Drive Today Showering/Bathing: May Shower Other/Special Instructions: Follow up with primary provider this week regarding your blood pressure as well as the dizziness/ear complaints. Follow up in ER if you have sudden worsening problems. Consider restarting Cefzil in 1-2 days if symptoms do not continue to improve, or ear discomfort worsens. - Discharge Plan *PRESCRIPTION DRUG MONITORING PROGRAM REVIEWED*: Not Applicable *COPY OF PRESCRIPTION DRUG MONITORING REPORT IN PATIENT AKIRA: Not Applicable Prescriptions/Med Rec: Benazepril [Lotensin] 10 mg PO BEDTIME #30 tab Meclizine [Antivert] 25 mg PO Q6H PRN #40 tablet PRN Reason: Dizziness Home Medications: Home Meds Cholecalciferol (Vitamin D3) [Vitamin D3] 2,000 unit PO DAILY 12/01/13 [History] [place]-3S/DHA/Epa/Fish Oil [Fish Oil Dr 1,000 mg Softgel] 2 each PO DAILY [History] ALPRAZolam [Alprazolam] 0.5 mg PO Q8HR PRN 11/20/18 [History] Cefprozil [Cefzil] 500 mg PO BID #20 tab 11/20/18 [Rx] Non-Formulary Medication [NF Drug] 1 applic TOP ASDIRECTED 11/20/18 [History] Ondansetron [Zofran ODT] 4 mg PO Q6H PRN #20 tab.dis 11/20/18 [Rx] diphenhydrAMINE [Benadryl] 25 mg PO Q6H PRN #1 bottle 11/20/18 [Rx] Benazepril [Lotensin] 10 mg PO BEDTIME #30 tab 11/23/18 [Rx] Magnesium Oxide 400 mg PO BID #0 11/23/18 [Rx] Meclizine [Antivert] 25 mg PO Q6H PRN #40 tablet 11/23/18 [Rx] Patient Handouts: Meclizine tablets or capsules, Benazepril tablets, Vertigo, Potassium Salts tablets, extended-release tablets or capsules, Metoprolol tablets, Promethazine injection, Magnesium Sulfate injection, Nausea and Vomiting, Adult, Dehydration, Adult Forms: ED Department Discharge Referrals: Leandra Gibson NP [Primary Care Provider] - - Discharge Summary/Plan Comment DC Time >30 min.: No - General Info Date of Service: 11/23/18 Admission Dx/Problem (Free Text: Admitted for treatment of severe vertigo, nausea and vomiting, thought to be secondary to right inner ear infection. Subjective Update: Significantly improved overall. No emesis or nausea. Minimal dizziness. Episodic mild right ear pain. Functional Status: Reports: Pain Controlled, Tolerating Diet, Ambulating, Urinating. Denies: New Symptoms - Review of Systems General: Reports: No Symptoms HEENT: Reports: Ear Pain (mild, right, intermittent, feels plugged), Glasses. Denies: Headaches, Sinus Congestion, Sore Throat, Rhinitis, Visual Changes Pulmonary: Reports: No Symptoms Cardiovascular: Reports: No Symptoms Gastrointestinal: Reports: No Symptoms Genitourinary: Reports: No Symptoms Musculoskeletal: Reports: No Symptoms Skin: Reports: No Symptoms Neurological: Reports: Dizziness. Denies: Confusion, Headache, Numbness, Paresthesia, Syncope, Tingling, Difficulty Walking, Gait Disturbance Psychiatric: Reports: No Symptoms - Patient Data Vitals - Most Recent: Last Vital Signs Temp 36.6 C 11/23/18 12:00 Pulse 76 11/23/18 12:00 Resp 16 11/23/18 12:00 BP 162/91 H 11/23/18 12:00 Pulse Ox 100 11/23/18 12:00 Weight - Most Recent: 52.163 kg I&O - Last 24 hours: Intake & Output 11/22/18 11/23/18 11/23/18 22:59 06:59 14:59 Intake Total 410 600 Balance 410 600 Lab Results - Last 24 hrs: Laboratory Results - last 24 hr 11/23/18 11/23/18 Range/Units 07:15 07:15 WBC 6.7 (4.0-10.2) K/uL RBC 4.53 (3.77-5.09) M/uL Hgb 14.8 D (11.7-15.5) g/dL Hct 42.1 (34.0-46.0) % MCV 92.9 (84.0-98.0) fL MCH 32.7 (28.2-33.3) pg MCHC 35.2 (31.7-36.0) g/dL RDW 12.3 (11.2-14.1) % Plt Count 282 (150-350) K/uL Neut % (Auto) 55.5 (45.0-80.0) % Lymph % (Auto) 31.1 (10.0-50.0) % [place] % (Auto) 11.0 (2.0-14.0) % Eos % (Auto) 1.8 (0.0-5.0) % Baso % (Auto) 0.6 (0.0-2.0) % Neut # (Auto) 3.69 (1.40-7.00) K/uL Lymph # (Auto) 2.07 (0.50-3.50) K/uL [place] # (Auto) 0.73 (0.00-1.00) K/uL Eos # (Auto) 0.12 (0.00-0.50) K/uL Baso # (Auto) 0.04 (0.00-0.20) K/uL Sodium 142 (136-145) mmol/L Potassium 3.8 (3.5-5.1) mmol/L Chloride 106 (98-107) mmol/L Carbon Dioxide 28.5 (21.0-32.0) mmol/L BUN 9 (7-18) mg/dL Creatinine 0.62 (0.51-1.17) mg/dL Est Cr Clr Drug Dosing 71.90 mL/min Estimated GFR (MDRD) > 60 mL/min Glucose 100 (74-106) mg/dL Calcium 8.9 (8.5-10.1) mg/dL Magnesium 1.8 (1.8-2.4) mg/dL Med Orders - Current: Current Medications Alprazolam (Xanax) 0.5 mg PO Q8H PRN PRN Reason: Anxiety Diphenhydramine HCl (Benadryl) 25 mg PO Q6H PRN PRN Reason: Itching Enoxaparin Sodium (Lovenox) 40 mg SUBCUT DAILY [facility] Last Admin: 11/23/18 08:01 Dose: 40 mg Meclizine HCl (Antivert) 25 mg PO Q6H [facility] Last Admin: 11/23/18 12:00 Dose: 25 mg Ondansetron HCl (Zofran) 4 mg IVPUSH Q6H PRN PRN Reason: Nausea/Vomiting Last Admin: 11/22/18 06:18 Dose: 4 mg Potassium Chloride (Klor-Con 10) 10 meq PO DAILY [facility] Last Admin: 11/23/18 08:01 Dose: 10 meq Sodium Chloride (Saline Flush) 10 ml FLUSH ASDIRECTED PRN PRN Reason: Keep Vein Open Last Admin: 11/21/18 17:12 Dose: 10 ml Discontinued Medications Alprazolam (Xanax) 0.5 mg PO Q8HR [facility] Benazepril HCl (Lotensin) 10 mg PO ONETIME ONE Stop: 11/22/18 19:01 Last Admin: 11/22/18 19:37 Dose: 10 mg Benazepril HCl (Lotensin) 10 mg PO ONETIME ONE Stop: 11/23/18 10:53 Last Admin: 11/23/18 12:00 Dose: 10 mg Diphenhydramine HCl (Benadryl) 50 mg IVPUSH ONETIME ONE Stop: 11/21/18 13:41 Last Admin: 11/21/18 13:57 Dose: 50 mg Sodium Chloride (Normal Saline) 1,000 mls @ 500 mls/hr IV .BOLUS ONE Stop: 11/21/18 11:40 Last Admin: 11/21/18 10:40 Dose: 500 mls/hr Sodium Chloride (Normal Saline) 500 mls @ 100 mls/hr IV ASDIRECTED [facility] Sodium Chloride (Normal Saline) 1,000 mls @ 100 mls/hr IV ASDIRECTED [facility] Last Admin: 11/22/18 00:20 Dose: 100 mls/hr Magnesium Sulfate/Dextrose (Magnesium 1 Gm In D5w 100 Ml) 1 gm IV ONETIME ONE Stop: 11/21/18 10:01 Last Admin: 11/21/18 12:46 Dose: 1 gm Magnesium Sulfate/Dextrose (Magnesium 1 Gm In D5w 100 Ml) 1 gm IV ONETIME ONE Stop: 11/22/18 10:01 Last Admin: 11/22/18 09:53 Dose: 1 gm Meclizine HCl (Antivert) 25 mg PO Q6H [facility] Last Admin: 11/21/18 13:08 Dose: Not Given Metoprolol Tartrate (Lopressor) 25 mg PO ONETIME ONE Stop: 11/22/18 06:44 Last Admin: 11/22/18 07:34 Dose: 25 mg Potassium Chloride (Klor-Con 10) 10 meq PO TID [facility] Last Admin: 11/22/18 12:10 Dose: 10 meq Promethazine HCl (Phenergan) 25 mg IM ONETIME ONE Stop: 11/21/18 09:42 Last Admin: 11/21/18 10:42 Dose: 25 mg - Exam Quality Assessment: Reports: DVT Prophylaxis General: Reports: Alert, Oriented, Cooperative, No Acute Distress HEENT: Reports: Pupils Equal, Pupils Reactive, EOMI, Mucous Membr. Moist/[place], Other (right TM has fluid behind it. Minimal erythema.) Neck: Reports: Supple Lungs: Reports: Clear to Auscultation, Normal Respiratory Effort Cardiovascular: Reports: Regular Rate, Regular Rhythm GI/Abdominal Exam: Normal Bowel Sounds, Soft, Non-Tender, No Organomegaly, No Distention (Female) Exam: Deferred Rectal (Female) Exam: Deferred Back Exam: Reports: Normal Inspection Extremities: Normal Inspection, Normal Capillary Refill Skin: Reports: Warm, Dry, Intact Neurological: Reports: No New Focal Deficit Psy/Mental Status: Reports: Alert, Normal Affect, Normal Mood
== END 2018-11-23 13:45 | disposition home or self-care (01) ==
LOC: LL.ED 08:27 → LL.MS 09:10
PROVIDERS: ADMIT Emergency Medicine; ATTEND Emergency Medicine
DX: R42 Dizziness and giddiness (principal); H65.01 Acute serous otitis media, right ear; R11.2 Nausea with vomiting, unspecified; I10 Essential (primary) hypertension; E83.42 Hypomagnesemia; E87.6 Hypokalemia; T78.40XA Allergy, unspecified, initial encounter; R79.89 Other specified abnormal findings of blood chemistry
CPT/HCPCS: 36000; 36415; 70450; 80048; 80053; 81001; 83735; 84439; 84443; 85025; 96361; 96365; 96366; 96372; 96375; 96376; 99285-25; A9270-GY; G0378; J1200; J1650; J2405; J2550; J3475; J7030

== ENCOUNTER 2019-03-05 08:02 | Day surgery (SDC) | payer BC ==
[~2019-03-05 08:02] MED LIST: Lactated Ringers 1,000 ML IV SCH; Propofol 200 MG/20 ML SDV ONE; Sodium Chloride 0.9% 10 ML Syringe FLUSH PRN
[2019-03-05] MEDS ORDERED: Propofol 200 MG/20 ML SDV ONE (09:02)
--- NOTE | 2019-03-05 09:07 | PCM.PN ---
- General Info Date of Service: 03/05/19 - Review of Systems Systems Review Comment:: 64-year-old female with history of colon polyps here for surveillance colonoscopy. Her last colonoscopy was 3 years ago. She has noted no significant change in bowel pattern. She is medically stable to proceed today. Her recent history and physical is reviewed and no significant changes are noted. She agrees to proceed accepting risks. - Patient Data Vitals - Most Recent: Last Vital Signs Temp 97 F 03/05/19 08:31 Pulse 68 03/05/19 08:31 Resp 16 03/05/19 08:31 BP 154/102 H 03/05/19 08:31 Pulse Ox 95 03/05/19 08:31 Weight - Most Recent: 52.163 kg Med Orders - Current: Current Medications Lactated Ringer's (Ringers, Lactated) 1,000 mls @ 125 mls/hr IV ASDIRECTED [facility] Last Admin: 03/05/19 08:20 Dose: 125 mls/hr Sodium Chloride (Saline Flush) 10 ml FLUSH ASDIRECTED PRN PRN Reason: Keep Vein Open Discontinued Medications Propofol (Diprivan 20 Ml) Confirm Administered Dose 400 mg .ROUTE .STK-MED ONE Stop: 03/05/19 07:58 - Problem List Review Problem List Initiated/Reviewed/Updated: Yes - Assessment Assessment:: history of colon polyps - Plan Plan:: colonoscopy
--- NOTE | 2019-03-05 09:35 | PCM.OPNOTE ---
- General Post-Op/Procedure Note Date of Surgery/Procedure: 03/05/19 Operative Procedure(s): Colonoscopy Findings: Normal colon Pre Op Diagnosis: History of colon polyps Post-Op Diagnosis: Normal Colon Anesthesia Technique: MAC Primary Surgeon: Juan Manuel Randhawa Pathology: none Output, Urine Amount: 0 EBL in mLs: 0 Complications: None Condition: Good
[2019-03-05 10:01] VITALS: BP 144/90; PULSE 67
--- NOTE | 2019-03-05 11:57 | OR ---
Date of Procedure: 03/05/2019 PREOPERATIVE DIAGNOSIS: History of colon polyps. POSTOPERATIVE DIAGNOSIS: Normal colon. OPERATION PERFORMED: Colonoscopy. INDICATIONS FOR SURGERY: This 64-year-old female has a known history of colon polyps and she comes today for surveillance colonoscopy. FINDINGS: The patient's colon appears normal today. No polyps or other visible abnormalities were seen in the colonic mucosa. No signs of inflammation or stenosis were identified. DESCRIPTION OF PROCEDURE: The patient was taken to the operating room. She was given intravenous sedation, and with her in the left lateral decubitus position, digital rectal exam was performed showing no rectal masses. The Olympus colonoscope was inserted into the rectum. Retroflexed examination of the rectal canal was performed. The scope was carefully advanced under direct visualization through the entire length of the colon until the cecum was reached. Cecal acquisition was confirmed by noting the normal internal cecal anatomy including the appendiceal orifice and ileocecal valve. The light was also noted to transilluminate the abdominal wall in the right lower quadrant. The ileocecal valve was cannulated and the terminal ileum was also examined. This area appeared normal. The scope was then slowly withdrawn sequentially re- examining the colonic segments until the entire colon and rectum had been fully examined. The scope was removed and the patient was taken from the operating room in satisfactory condition. ESTIMATED BLOOD LOSS: 0. COMPLICATIONS: None. PROGNOSIS: Good. RAJESH Randhawa MD /[id number]
== END 2019-03-05 10:30 | disposition home or self-care (01) ==
LOC: LL.SDS 08:02
PROVIDERS: ATTEND Surgery
DX: Z12.11 Encounter for screening for malignant neoplasm of colon (principal); I10 Essential (primary) hypertension; E78.5 Hyperlipidemia, unspecified; F41.9 Anxiety disorder, unspecified; Z88.0 Allergy status to penicillin; Z86.010 Personal history of colon polyps; Z79.82 Long term (current) use of aspirin; Z79.899 Other long term (current) drug therapy
CPT/HCPCS: 45378; J2704; J7120

== ENCOUNTER → 2019-07-10 | Outpatient (CLI) | payer BC | LOC: LL.US 09:27 | PROVIDERS: ATTEND Otolaryngology | DX: Z12.31 Encounter for screening mammogram for malignant neoplasm of breast (principal); E07.9 Disorder of thyroid, unspecified; E04.2 Nontoxic multinodular goiter; Z90.09 Acquired absence of other part of head and neck | CPT/HCPCS: 76536; 77063; 77067 ==

== ENCOUNTER 2024-04-30 08:42 | Day surgery (SDC) | payer MEDICARE ==
[~2024-04-30 08:42] MED LIST changes: -Lactated Ringers 1,000 ML IV SCH; +Midazolam 1 MG/ML 2 ML SDV ONE; -Sodium Chloride 0.9% 10 ML Syringe FLUSH PRN
[2024-04-30] MEDS ORDERED: Sodium Chloride 0.9% 10 ML Syringe FLUSH PRN (08:45)
[2024-04-30] MEDS: Lactated Ringers 1,000 ML IV SCH (09:14)
[2024-04-30] MEDS ORDERED: Lidocaine 2% 5 ML SDV ONE (10:00)
[2024-04-30] MEDS ORDERED: Glycopyrrolate 0.2 MG/ML SDV IVPUSH ONE (10:00)
[2024-04-30 11:00] VITALS: BP 119/70; PULSE 70
== END 2024-04-30 11:10 | disposition home or self-care (01) ==
LOC: LL.SDS 08:42
PROVIDERS: ATTEND Surgery
DX: Z12.11 Encounter for screening for malignant neoplasm of colon (principal); K21.9 Gastro-esophageal reflux disease without esophagitis; R13.10 Dysphagia, unspecified; I10 Essential (primary) hypertension; E78.5 Hyperlipidemia, unspecified; Z88.0 Allergy status to penicillin; Z87.891 Personal history of nicotine dependence; Z86.010 Personal history of colon polyps
CPT/HCPCS: 43239; G0105; J1596; J2250; J2704; J7120; J3490